=== PATIENT | female | born 1945 | race Caucasian/White ===

== ENCOUNTER 2025-06-06 08:54 | Outpatient (CLI) | payer OTHER ==
[2025-06-06 09:35] LABS: INR 1.21
== END 2025-06-06 09:15 | disposition home or self-care (01) ==
LOC: LAB 08:54
PROVIDERS: ATTEND Radiology Diagnostic Radiology
DX: D68.9 Coagulation defect, unspecified (principal); C18.2 Malignant neoplasm of ascending colon

== ENCOUNTER 2025-06-06 09:39 | Outpatient (CLI) | payer OTHER | END 2025-06-07 13:16 | disposition home or self-care (01) | LOC: TOM 09:39 | DX: C18.2 Malignant neoplasm of ascending colon (principal); C78.7 Secondary malignant neoplasm of liver and intrahepatic bile duct ==